=== PATIENT | female | born 1940 | race African-American/Black ===

== ENCOUNTER 2019-04-11 19:32 | Inpatient (IN) | payer OTHER, BC ==
[~2019-04-11] VITALS: Ht 167.6 cm; Wt 117.0 kg
[~2019-04-11 19:32] MED LIST: AVALIDE 300-121 EACH PO; BAYER CHEWABLE81 MG PO; CALCIUM 600 +1 EAC1 PO; CARVEDILOL12.5 MG PO; CENTRUM SILVER1 EAC4 PO; LIPITOR20 MG PO; NORCO 5-325 TA1 EACH PO
[2019-04-11 19:37] VITALS: BP 157/59
[2019-04-11 21:17] LABS: BASOPHILS 0.7 % (0.0-2.0); EOSINOPHILS 1.8 % (0.0-3.0); HEMATOCRIT 36.5 % (37.0-47.0); MCH 29.2 pg (26.0-34.0); MCHC 32.9 g/dL (28.0-37.0); MCV 88.8 fL (80.0-100.0); MONOCYTES 5.8 % (1.0-8.0); PLATELET COUNT 177 thou/uL (150-400); POLYS 55.7 % (36.0-66.0); RBC 4.11 mil/uL (4.20-5.00); RDW 14.2 % (10.5-14.5); WBC 7.1 thou/uL (4.0-11.0)
[2019-04-11 21:25] LABS: CALCIUM 9.5 mg/dL (8.5-10.1); POTASSIUM 3.9 mmol/L (3.5-5.1)
[2019-04-11 21:35] LABS: TROPONIN-I 0.1 ng/mL (<0.06)
[2019-04-12 04:14] LABS: HEMATOCRIT 36.9 % (37.0-47.0); HEMOGLOBIN 11.7 gm/dL (12.0-15.0); MCH 28.7 pg (26.0-34.0); MCHC 31.8 g/dL (28.0-37.0); MCV 90.1 fL (80.0-100.0); RBC 4.1 mil/uL (4.20-5.00); RDW 14.3 % (10.5-14.5); WBC 9.8 thou/uL (4.0-11.0)
[2019-04-12 04:29] LABS: CALCIUM 9.1 mg/dL (8.5-10.1); CREATININE 1.1 mg/dL (0.6-1.0); POTASSIUM 3.8 mmol/L (3.5-5.1); TOTAL BILIRUBIN 0.4 mg/dL (<0.1-1.0)
--- NOTE | 2019-04-12 10:45 | 2DMMODE ---
[facility] [place] [address] 2 D/M-MODE ECHOCARDIOGRAM [facility] Room #: 170-3 ADM IN M.R.#: [id number] Admission: 04/11/19 Attend Phys: Saida Jefferson Discharge: Date of : 38 Report #: [id number] THIS REPORT FOR: //name// APPROVED REPORT Study performed: 04/12/2019 07:50:03 EXAM: Comprehensive 2D, Doppler, and color-flow Echocardiogram Patient Location: ER Room #: 9 Status: routine BSA: 2.20 HR: 83 bpm BP: 132/60 mmHg Rhythm: NSR Other Information Study Quality: Adequate Indications Hypertension, elevated troponin. DM. 2D Dimensions RVDd: 32.32 mm IVSd: 12.00 (7-11mm) LVOT Diam: 19.55 (18-24mm) LVDd: 51.19 mm PWd: 12.00 (7-11mm) Ascending Ao: 40.68 (22-36mm) LVDs: 30.08 (25-40mm) Aortic Root: 31.86 mm Volumes Left Atrial Volume (Systole) Single Plane 4CH: 120.00 mL Single Plane 2CH: 81.76 mL LA ESV Index: 48.00 mL/m2 Aortic Valve AoV Peak Omer.: 2.06 m/s AO Peak Gr.: 15.04 mmHg LVOT Max P.94 mmHg AO Mean Gr.: 7.50 mmHg AO V2 Mean: 1.29 m/s LVOT Max V: 1.22 m/s AO V2 VTI: 40.32 cm TIFFANY Vmax: 1.77 cm2 Mitral Valve E/A Ratio: 1.3 [facility] [address] [place] [address] 2 D/M-MODE ECHOCARDIOGRAM Name: EDDIE ARREOLA [facility] Room #: [facility] ADM IN ..#: [id number] Admission: 04/11/19 Attend Phys: Saida Jefferson Discharge: Date of : 39 Report #: [id number] MV Decel. Time: 195.96 ms MV E Max Omer.: 0.98 m/s MV A Omer.: 0.78 m/s MV PHT: 56.83 ms IVRT: 65.74 ms Pulmonary Valve PV Peak Omer.: 1.40 m/s PV Peak Gr.: 7.85 mmHg Pulmonary Vein P Vein S: 0.61 m/s P Vein D: 0.38 m/s P Vein S/D Ratio: 1.61 Tricuspid Valve TR Peak Omer.: 2.41 m/s TR Peak Gr.: 23.26 mmHg Left Ventricle The left ventricle is normal size. There is normal LV segmental wall motion. Mild concentric left ventricular hypertrophy. Left ventricular systolic function is normal. LVEF is 55-60%. Moderate diastolic dysfunction is present (pseudonormal filling). Right Ventricle The right ventricle is normal size. The right ventricular systolic function is normal. Atria Left atrium is moderate to severely dilated. The right atrium size is normal. Aortic Valve The aortic valve is normal in structure; mildly calcified. Mild aortic regurgitation. There is no aortic valvular stenosis. Mitral Valve The mitral valve is normal in structure. Mild mitral regurgitation. Tricuspid Valve The tricuspid valve is normal in structure. Trace tricuspid regurgitation. Estimated PAP is 23mmHg plus the right atrial pressure. Pulmonic Valve [facility] [place] [address] 2 D/M-MODE ECHOCARDIOGRAM [facility] Room #: 170-3 ADM IN M.R.#: [id number] Admission: 04/11/19 Attend Phys: Saida Jefferson Discharge: Date of : 39 Report #: [id number] The pulmonary valve is normal in structure. Trace pulmonic regurgitation. Great Vessels The aortic root is normal in size. The ascending aorta is mildly dilated. IVC is not well visualized. Pericardium There is no pericardial effusion. <Conclusion> The left ventricle is normal size. Mild concentric left ventricular hypertrophy. LVEF is 55-60%. Moderate diastolic dysfunction is present (pseudonormal filling). The right ventricle is normal size. Left atrium is moderate to severely dilated. The aortic valve is normal in structure; mildly calcified. There is no aortic valvular stenosis. Mild mitral regurgitation. Trace tricuspid regurgitation. Estimated PAP is 23mmHg plus the right atrial pressure. The aortic root is normal in size. There is no pericardial effusion. The ascending aorta is mildly dilated. <ELECTRONICALLY SIGNED> By: Abran Savage MD, FACC 04/12/19 1045 1045 1045 Abran Savage MD, FACC /INF
[2019-04-12 11:59] VITALS: BP 133/53
[2019-04-12 13:52] LABS: CHOLESTEROL 162 mg/dL (<200); HDL CHOLESTEROL 49 mg/dL (>40); LDL CHOLESTEROL 91 mg/dL (<100); TC:HDL 3.3 Ratio (Not establshd); TRIGLYCERIDE 114 mg/dL (<150); VLDL 23 mg/dL (<40)
[2019-04-12 13:54] LABS: SERUM ASSESSMENT Clear
[2019-04-12 15:31] VITALS: BP 144/75
--- NOTE | 2019-04-12 17:32 | EKG ---
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: JEFFERY : 1940 Requested By: Curtis Tran Order Number: [id number] MD: Mane Morton Measurements Intervals [place] Rate: 79 P: 49 MS: 174 QRS: 8 QRSD: 117 T: 67 QT: 396 QTc: 455 Interpretive Statements Sinus rhythm Atrial premature complexes Incomplete left bundle branch block Anterior Q waves, possibly due to LVH No previous ECG available for comparison Electronically Signed On 04-12-2019 17:32:40 CDT by Mane Morton [email or web address] <ELECTRONICALLY SIGNED> By: Mane Morton MD, [facility] 04/12/191731 49 49 Mane Morton MD, FACC /EPI
--- NOTE | 2019-04-12 17:42 | EKG ---
[place] [address] [facility] [place] [address] ELECTROCARDIOGRAM REPORT Name: EDDIE ARREOLA Room #: 203-P ADM IN M.R.#: [id number] Admission: 04/11/19 Attend Phys: Saida Salas Discharge: Date of : 39 Report #: [id number] THIS REPORT FOR: //name// [facility] Test Date: 2019-04-12 Test Time: 14:05:34 Pat Name: EDDIE ARREOLA Department: Room: 203 Gender: F Oncology Research Rn: Cande HOWARD : 1940 Requested By: Curtis Tran Order Number: [id number] MD: Mane Morton Measurements Intervals [place] Rate: 85 P: 53 IA: 170 QRS: 15 QRSD: 120 T: 26 QT: 399 QTc: 475 Interpretive Statements Sinus rhythm Probable left ventricular hypertrophy Anterior ST elevation, probably due to LVH No previous ECG available for comparison Electronically Signed On 04-12-2019 17:42:01 CDT by Mane Morton [email or web address] <ELECTRONICALLY SIGNED> By: Mane Morton MD, [facility] 04/12/19 1742 D: 10/1404 140 Mane Morton MD, FACC /EPI
[2019-04-12] MEDS ORDERED: LOSARTAN-HCTZ1 EAC2 PO (19:47)
[2019-04-12] MEDS ORDERED: LUMIGAN2.5 M1 OP (19:50)
[2019-04-12] MEDS ORDERED: CARVEDILOL25 MG PO (19:50)
[2019-04-12] MEDS ORDERED: TIMOLOL MALEATE5 M1 OPHTHALMIC (19:51)
[2019-04-12] MEDS ORDERED: EVISTA PO (19:52)
[2019-04-12] MEDS ORDERED: ZETIA10 MG PO (19:53)
[2019-04-12] MEDS ORDERED: COLESEVELAM HC625 MG PO (19:54)
[2019-04-12 21:04] VITALS: BP 156/88
[2019-04-12 23:10] LABS: GLYCOHEMOGLOBIN (HGB A1C) 6.4 % (4.8-5.6)
[2019-04-13] VITALS (7 sets, daily range): BP systolic 118–158; BP diastolic 55–68
--- NOTE | 2019-04-13 03:58 | NUR ---
ASSUMED CARE AT 1900.PT ALERT AND ORIENTED. DENIES PAIN. ELEVATED BP, COREG, HOME DOSE RESTARTED. NPO SINCE MIDNIGHT. DENIES SOB, CHEST PAIN , DIZZINESS OR ANY SYNCOPE EPISODE. NO FURTHER C/O. PT STABLE. STRESS TEST PART 2 THIS AM. WILL CONTINUE TO MONITOR
== END 2019-04-13 17:58 | disposition home or self-care (01) | DRG 312 ==
LOC: ER 19:32 → EROBS 22:06 → 2N 22:06 → ENTRNSPT 04-13 16:33 → DELTRNSPT 04-13 17:53 → 2N 04-13 17:58
PROVIDERS: Nurse Practitioner; Nurse Practitioner Family; ADMIT Hospitalist
DX: R55 Syncope and collapse (principal); I10 Essential (primary) hypertension; E11.9 Type 2 diabetes mellitus without complications; E78.5 Hyperlipidemia, unspecified; Z60.2 Problems related to living alone; V89.2XXA Person injured in unspecified motor-vehicle accident, traffic, initial encounter; Y92.488 Other paved roadways as the place of occurrence of the external cause; Y93.89 Activity, other specified; Y99.8 Other external cause status; Z80.1 Family history of malignant neoplasm of trachea, bronchus and lung; Z80.52 Family history of malignant neoplasm of bladder; Z87.891 Personal history of nicotine dependence; Z79.82 Long term (current) use of aspirin; Z79.899 Other long term (current) drug therapy
CPT/HCPCS: 10081

== ENCOUNTER → 2020-11-22 | Outpatient (CLI) | payer OTHER, BC ==
[~2020-11-22] VITALS: Ht 167.6 cm; Wt 108.9 kg
[~2020-11-22] MED LIST changes: +CARVEDILOL25 MG PO; +COLESEVELAM HC625 MG PO; +COMBIGAN EYE DR10 ML OPHTHALMIC; +EVISTA PO; +LOSARTAN-HCTZ1 EAC2 PO; +LUMIGAN2.5 M1 OP; +NAPROSYN500 MG PO; +REFRESH CLASSI1 EACH OPHTHALMIC; +SLEEP AID50 MG PO; +TIMOLOL MALEATE5 M1 OPHTHALMIC; +ZETIA10 MG PO
--- NOTE | 2020-11-25 15:04 | P ---
[facility] [place] [address] PROCEDURE REPORT Name: EDDIE ARREOLA Room #: REG NANCI Baljit#: [id number] Admission: 11/22/20 Attend Phys: Paolo Armando Discharge: Date of : 39 Report #: [id number] THIS REPORT FOR: cc: Larry Esteban MD,Larry Hernandez,Paolo Carranza MD ~ DOC #: [id number] cc: MD Paolo August MD DATE OF SERVICE: 11/22/2020 PROCEDURE PERFORMED: Colonoscopy with polypectomies. HISTORY OF PRESENT ILLNESS: The patient is an 80-year-old female with recent Hemoccult positive stool. She denies any obvious bright red blood per rectum or melena. Last colonoscopy approximately 10 years ago. I do not have a copy of these results. She denies any abdominal pain. No family history of colon cancer. No history of anemia. She does take aspirin, which has been held for the last few days. DESCRIPTION OF PROCEDURE: The risks and benefits of the procedure were explained to the patient, those risks including but not limited to bleeding, perforation and the risk of sedation. She understood these risks and gave informed consent. Sedation was given using propofol per anesthesia. Next, a digital rectal exam was initially performed, which was normal. Next, using a standard Olympus colonoscope, the scope was placed in the patient's anus and advanced under direct vision to the cecum. The overall prep was good. In the cecum, there was a 3 mm sessile polyp. This was removed with cold forceps, otherwise normal. The ileocecal valve was normal. In the ascending colon, 2 polyps ranging from 3-4 mm were noted both removed by cold forceps. The transverse and descending colon were normal. Multiple small diverticula were noted in the sigmoid colon. No evidence of inflammation. Also noted was a 3 mm sessile polyp also removed with cold forceps. In the proximal rectum, there was a 5 mm polyp that was noted and with the scope passing by, it did start actively bleeding very mildly. This was removed by snare cautery. No further bleeding was noted after removal. The remaining rectum was normal. On retroflexion, small nonbleeding internal hemorrhoids were seen. The scope was then withdrawn and the procedure terminated. The patient tolerated the procedure well. IMPRESSION: Multiple colonic polyps as described above, one in the rectum had active bleeding with the scope passing, suspect this may be the etiology of the patient's heme-positive stool. This has been now removed. RECOMMENDATIONS: Observe the patient post-procedure. [address] [address] PROCEDURE REPORT Name: EDDIE ARREOLA Room #: REG NANCI Smiley#: [id number] Admission: 11/22/20 Attend Phys: Paolo Armando Discharge: Date of : 39 Report #: [id number] Thank you for allowing me to participate in her care. Paolo Hernandez MD CCM/LEONCIO <ELECTRONICALLY SIGNED> By: Paolo Hernandez MD 11/25/20 1504 0928 2145 Paolo Hernandez MD /nt
--- NOTE | 2020-11-26 13:13 | PATH ---
[facility] [place] [address] PATHOLOGY RPT PROCEDURE Name: EDDIE ARREOLA Room #: REG NANCI Rico.#: [id number] Admission: 11/22/20 Date of : 39 Discharge: Report #: [id number] Path Case #: [id number] [facility] Accession Number: [id number] . 01 Material submitted: . PART A: cecum - CECAL POLYP PART B: colon - ASCENDING COLON POLYP X2. Modifiers: ascending PART C: sigmoid colon - SIGMOID COLON POLYP PART D: rectum - RECTAL POLYP . 01 Clinical history: . BLOOD IN STOOL COLON POLYPS . 02 Diagnosis: A. Polyp, cecal polyp, endoscopic biopsy: - Tubular adenoma. - Negative for high-grade dysplasia. . B. Polyp x2, ascending colon polyp, endoscopic biopsy: - Tubular adenoma. - Negative for high-grade dysplasia. . C. Polyp, sigmoid colon polyp, endoscopic biopsy: - Tubular adenoma. - Negative for high-grade dysplasia. . D. Polyp, rectal polyp, endoscopic biopsy: - Tubular adenoma. - Negative for high-grade dysplasia. (IUV:maikol; 11/25/2020) QMS 11/25/2020 1640 Local . 02 Electronically signed: . Aracelis Gage MD, Pathologist NPI- [id number] . 01 Gross description: . A. Received in formalin labeled "Eddie Arreola, cecal polyp" are 2 fragments of colorado-brown soft tissue measuring in aggregate 0.5 x 0.3 x 0.1 cm. The specimen is submitted entirely in A1. . B. Received in formalin labeled "Eddie Arreola, ascending colon polyp x2" are multiple fragments of colorado-brown soft tissue measuring in aggregate 0.8 x 0.3 x 0.1 cm. The specimen is submitted entirely in B1. . C. Received in formalin labeled "Eddie Arreola, sigmoid colon polyp" is a [place] [id number] PATHOLOGY RPT [facility] #: REG [facility]#: [id number] Admission: 11/22/20 Date of : 39 Discharge: Report #: [id number] Path Case #: [id number] fragment of colorado-brown soft tissue measuring 0.3 x 0.3 x 0.1 cm. The specimen is submitted entirely in C1. . D. Received in formalin labeled "Alfreda, Eddie, rectal polyp" are multiple fragments of colorado-brown soft tissue measuring in aggregate 1.1 x 0.7 x 0.2 cm. The specimen is submitted entirely in D1. ([facility]; 11/24/2020) [facility] 11/24/2020 1039 Local . 02 Pathologist provided ICD-10: D12.0, D12.2, D12.5, D12.8 . 02 CPT . 864428, 278103, 396040, 377422 Specimen Comment: A courtesy copy of this report has been sent to [phone], [phone] Specimen Comment: [phone] Specimen Comment: Report sent to / DR MORGAN Performed at: [address], [place] [id number] MD Norman Stevenson MD Phone: [phone] Performed at: [address] [id number] MD Aracelis Gage MD Phone: [phone]
== END | disposition home or self-care (01) ==
LOC: GI 07:56
PROVIDERS: ATTEND Specialist
DX: K92.1 Melena (principal); D12.0 Benign neoplasm of cecum; D12.2 Benign neoplasm of ascending colon; D12.5 Benign neoplasm of sigmoid colon; D12.8 Benign neoplasm of rectum; K57.30 Diverticulosis of large intestine without perforation or abscess without bleeding; K64.8 Other hemorrhoids; I10 Essential (primary) hypertension; E11.9 Type 2 diabetes mellitus without complications; H40.9 Unspecified glaucoma; Z98.890 Other specified postprocedural states; Z79.899 Other long term (current) drug therapy; Z87.891 Personal history of nicotine dependence; Z90.49 Acquired absence of other specified parts of digestive tract; Z79.82 Long term (current) use of aspirin
CPT/HCPCS: 62110; 62900

== ENCOUNTER 2021-07-21 20:10 | Inpatient (IN) | payer OTHER, BC ==
[~2021-07-21] VITALS: Ht 170.2 cm; Wt 108.4 kg
[2021-07-21 20:34] VITALS: BP 114/57
[2021-07-21 21:31] LABS: HEMATOCRIT 36.2 % (37.0-47.0); HEMOGLOBIN 11.9 gm/dL (12.0-15.0); MCH 28.9 pg (26.0-34.0); MCV 87.5 fL (80.0-100.0); PLATELET COUNT 134 thou/uL (150-400); RBC 4.13 mil/uL (4.20-5.00); RDW 15.4 % (10.5-14.5); WBC 16.3 thou/uL (4.0-11.0)
[2021-07-21 21:34] LABS: CREATININE 2.1 mg/dL (0.6-1.0); POTASSIUM 4.3 mmol/L (3.5-5.1)
[2021-07-21 21:45] LABS: ALBUMIN 2.5 g/dL (3.4-5.0); TOTAL BILIRUBIN 1.4 mg/dL (0.2-1.0); TOTAL PROTEIN 6.9 g/dL (6.4-8.2)
[2021-07-21 21:46] LABS: URINE BILIRUBIN NEGATIVE (Negative); URINE BLOOD 1+ (Negative); URINE CLARITY SL CLOUDY; URINE COLOR YELLOW; URINE GLUCOSE-RANDOM* NEGATIVE (Negative); URINE KETONES NEGATIVE (Negative); URINE NITRITE-REFLEX NEGATIVE (Negative); URINE PROTEIN (DIPSTICK) 2+ (Negative); URINE SPECIFIC GRAVITY >= 1.030 (1.005-1.035); URINE UROBILINOGEN 0.2 E.U./dl (0.2-1.0)
[2021-07-21 21:49] LABS: URINE LEUKOCYTES-REFLEX 2+ (Negative)
[2021-07-21 22:14] LABS: BACTERIA-REFLEX >30 Many /HPF (None Seen); HYALINE CASTS 0-3 Few /LPF (None Seen); MUCUS 0-3 Light strn/LPF (None Seen); SQUAMOUS 4-10 Moderate /LPF (0-3); URINE WBC-REFLEX >25 Many /HPF (0-5)
[2021-07-21 22:15] LABS: CRYSTALS None Seen /LPF (None Seen); URINE RBC 3-10 Few /HPF (NONE SEEN)
[2021-07-21 22:43] LABS: ABSOLUTE NEUTROPHILS 12.6 thou/uL (1.4-8.2)
[2021-07-22 06:24] LABS: HEMATOCRIT 36.9 % (37.0-47.0); HEMOGLOBIN 12.1 gm/dL (12.0-15.0); MCH 28.9 pg (26.0-34.0); MCHC 32.8 g/dL (28.0-37.0); MCV 88.1 fL (80.0-100.0); RBC 4.19 mil/uL (4.20-5.00); RDW 15.6 % (10.5-14.5); WBC 11.8 thou/uL (4.0-11.0)
[2021-07-22 06:54] LABS: ANION GAP 14 mmol/L (7-16); BUN 43 mg/dL (7-18); CALCIUM 7.8 mg/dL (8.5-10.1); CHLORIDE 96 mmol/L (98-107); CHOLESTEROL 135 mg/dL (<200); CO2 21 mmol/L (21-32); CREATININE 2.1 mg/dL (0.6-1.0); GLUCOSE 168 mg/dL (74-106); HDL CHOLESTEROL 11 mg/dL (>40); LDL CHOLESTEROL 74 mg/dL (<100); POTASSIUM 4.1 mmol/L (3.5-5.1); SODIUM 131 mmol/L (136-145); TC:HDL 12.3 Ratio (Not establshd); TRIGLYCERIDE 253 mg/dL (<150); VLDL 51 mg/dL (<40)
[2021-07-22 07:07] LABS: SERUM ASSESSMENT Clear
--- NOTE | 2021-07-22 10:32 | NUR ---
RECEIVED RPEORT FROM RN, ROUNDED ON PT AND INTRODUCED SELF,PT WAS BEING ASSISTED INTO A HOSPITAL BED, STATES SHE IS MUCH MORE COMFORTABLE. PT DENIES ANY NEEDS AT THIS TIME
--- NOTE | 2021-07-22 11:29 | NUR ---
PTS BLOOD GLUCOSE 192
--- NOTE | 2021-07-22 11:57 | EKG ---
[address] [place] [address] ELECTROCARDIOGRAM REPORT Name: EDDIE ARREOLA Room #: 170-4 ADM IN M.R.#: [id number] Admission: 07/21/21 Attend Phys: Herbie Hernandez MD Discharge: Date of : 39 Report #: [id number] [facility] ED Test Date: 2021-07-21 Test Time: 21:22:13 Pat Name: EDDIE ARREOLA Department: Room: 170 Gender: F Kitchen Lead: LEWIS : 1940 Requested By: Esha Queen Order Number: [id number] MD: Shiv Obrien Measurements Intervals [place] Rate: 90 P: 73 OK: 153 QRS: -1 QRSD: 119 T: 22 QT: 363 QTc: 444 Interpretive Statements Sinus arrhythmia Incomplete left bundle branch block Low voltage, precordial leads Left ventricular hypertrophy Baseline wander in lead(s) V3 Compared to ECG 04/12/2019 14:05:34 Left bundle-branch block now present Low QRS voltage now present Sinus rhythm no longer present ST (T wave) deviation no longer present Electronically Signed On 07-22-2021 11:57:03 OPERATIVE SUPERVISOR by Shiv Obrien [email or web address] <ELECTRONICALLY SIGNED> By: Shiv Obrien MD, FACC 07/22/21 1157 21 21 Shiv Obrien MD, FAC /EPI
--- NOTE | 2021-07-22 11:58 | EKG ---
[place] [address] [facility] [place] [address] ELECTROCARDIOGRAM REPORT Name: EDDIE ARREOLA Room #: 170-4 ADM IN M.R.#: [id number] Admission: 07/21/21 Attend Phys: Herbie Hernandez MD Discharge: Date of : 39 Report #: [id number] [facility] Test Date: 2021-07-22 Test Time: 10:33:44 Pat Name: EDDIE ARREOLA Department: Room: 170 4 Gender: F Metrology Specialist: CRISTEL : 1940 Requested By: Caprice Ayala Order Number: [id number] MD: Shiv Obrien Measurements Intervals [place] Rate: 87 P: 55 RI: 162 QRS: 1 QRSD: 121 T: 23 QT: 372 QTc: 448 Interpretive Statements Sinus rhythm Consider left atrial enlargement Left bundle branch block Compared to ECG 07/21/2021 21:22:13 Sinus arrhythmia no longer present Left ventricular hypertrophy no longer present Electronically Signed On 07-22-2021 11:58:[address] by Shiv Obrien [email or web address] <ELECTRONICALLY SIGNED> By: Shiv Obrien MD, [facility] 07/22/21 1158 1033 1033 Shiv Obrien MD, FAC /EPI
--- NOTE | 2021-07-22 15:05 | 2DMMODE ---
[facility] [place] [address] 2 D/M-MODE ECHOCARDIOGRAM Name: EDDIE ARREOLA Room #: 170-4 ADM IN M.R.#: [id number] Admission: 07/21/21 Attend Phys: Herbie Hernandez MD Discharge: Date of : 39 Report #: [id number] THIS REPORT FOR: cc: Larry Esteban MD, Sequita MD Park, Jin S. MD ~ APPROVED REPORT Study performed: 07/22/2021 14:26:35 EXAM: Comprehensive 2D, Doppler, and color-flow Echocardiogram Patient Location: ER Room #: 4 Status: routine BSA: 2.18 HR: 83 bpm BP: 127/70 mmHg Rhythm: NSR Other Information Study Quality: Adequate Indications Diabetes Elevated Troponin Hypertension/HDD 2D Dimensions IVSd: 8.76 (7-11mm) LVOT Diam: 21.35 (18-24mm) LVDd: 52.75 mm PWd: 9.14 (7-11mm) Ascending Ao: 34.77 (22-36mm) LVDs: 36.45 (25-40mm) Left Atrium: 48.34 (27-40mm) Aortic Root: 28.78 mm IVC: 24.00 mm Volumes Left Atrial Volume (Systole) Single Plane 4CH: 79.40 mL Single Plane 2CH: 56.73 mL LA ESV Index: 33.00 mL/m2 Aortic Valve AoV Peak Omer.: 1.17 m/s AO Peak Gr.: 5.44 mmHg LVOT Max P.87 mmHg LVOT Max V: 0.85 m/s [facility] [address] [place] [address] 2 D/M-MODE ECHOCARDIOGRAM Name: EDDIE ARREOLA Room #: 170-4 ADM IN ..#: [id number] Admission: 07/21/21 Attend Phys: Herbie Hernandez MD Discharge: Date of : 39 Report #: [id number] TIFFANY Vmax: 2.60 cm2 Pulmonary Valve PV Peak Omer.: 0.99 m/s PV Peak Gr.: 3.89 mmHg Tricuspid Valve TR Peak Omer.: 2.53 m/s TR Peak Gr.: 25.55 mmHg PA Pressure: 36.00 mmHg Left Ventricle The left ventricle is normal size. There is normal LV segmental wall motion. There is normal left ventricular wall thickness. The left ventricular systolic function is normal. The left ventricular ejection fraction is within the normal range. LVEF is 55-60%. This study is not technically sufficient to allow evaluation of the LV diastolic function. Right Ventricle The right ventricle is normal size. The right ventricular systolic function is normal. Atria Left atrium is at the upper limits of normal. Right atrium is at the upper limits of normal. Aortic Valve The Aortic valve is sclerotic. Trace aortic regurgitation. There is no aortic valvular stenosis. Mitral Valve The mitral valve is normal in structure. Mild mitral regurgitation. No evidence of mitral valve stenosis. Tricuspid Valve The tricuspid valve is normal in structure. There is trace tricuspid regurgitation. Estimated PAP 34 mmHg. There is mild pulmonary hypertension. Pulmonic Valve The pulmonary valve is normal in structure. There is no pulmonic valvular regurgitation. Great Vessels The aortic root is normal in size. IVC is dilated and collapses <50% with inspiration. [facility] [address] [place] [address] 2 D/M-MODE ECHOCARDIOGRAM Name: EDDIE ARREOLA Room #: 170-4 ADM IN M.R.#: [id number] Admission: 07/21/21 Attend Phys: Herbie Hernandez MD Discharge: Date of : 39 Report #: [id number] Pericardium There is no pericardial effusion. <Conclusion> The left ventricle is normal size. There is normal left ventricular wall thickness. The left ventricular systolic function is normal. The right ventricle is normal size. Left atrium is at the upper limits of normal. The Aortic valve is sclerotic. Mild mitral regurgitation. There is trace tricuspid regurgitation. Estimated PAP 34 mmHg. <ELECTRONICALLY SIGNED> By: Stefano Mayo MD 07/22/21 1504 1504 1504 Stefano Mayo MD /INF
--- NOTE | 2021-07-22 15:09 | NUR ---
PT ADMITTED RELATED TO UROSEPSIS AND ELEVATED TROPONIN. CM REVIEWED CHART AND SPOKE WITH CARE TEAM. CM CALLED PT'S DTR REBECCA MAC . SHE INDICATED THAT PT RESIDES IN A HOUSE AND THAT HER GRANDSON RESIDES WITH HER. DTR INDICATED THAT THERE IS 1 STEP TO ENTER AND 7 STEPS DOWN TO LAUNDRY ROOM. 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 DTR INDICATED SHE DIDN'T THINK PT HAD HH OR OP HX. PT'S PCP IS DR. NIKOS MORGAN. DTR INDICATED SHE ANTICIPATED PT RETURNING HOME ONCE MEDICALLY STABLE. PT IS ON IV ROCEPHIN. CARDIOLOGY, OT, AND OT CONSULTED. CM FOLLOWING REGARDING DC PLANNING NEEDS.
--- NOTE | 2021-07-22 18:15 | NUR ---
THIS RN ATTEMPTED TO CLL REPORT TO 4S, NO ANSWER
[2021-07-22 18:28] VITALS: BP 117/60
[2021-07-22 20:35] VITALS: BP 137/79
--- NOTE | 2021-07-22 22:57 | NUR ---
PT ADMITTED TO THE UNIT WITH ELEVATED TROPONIN AND UROSEPSIS. PT IS A/O X4 AND IS UP WITH ASSISTANCE. RA. VSS. PULLUP PROVIDED AT REQUEST OF PT FOR INCONTINENCE. LBM WAS YESTERDAY. ADMISSION IS COMPLETED. PT HAS BEEN EDUCATED ON USE OF CALL LIGHT AND BED CONTROLS. MEDICATION GIVEN PER MAR. HS BS ELEVATED. INSULIN GIVEN DIRECTED. PT VOICES NO CONCERNS WITH PAIN OR DISCOMFORT. FALL PRECAUTIONS IN PLACE, CALL LIGHT IS WITHIN REACH.
--- NOTE | 2021-07-23 08:10 | NUR ---
ASSUMED PT CARE THIS AM. PT REFUSED VITAL SIGNS, BLOOD SUGAR MONITOR, MEDICATIONS, TELE MONITOR AND LABS THIS AM. EDUCATED PT AND REITERATE BUT STILL REFUSING AND STATING THAT SHE WANTS TO GO HOME. CALLED DIESEL ENGINEER THIS AM TO HELP EDUCATED PT BUT UNSUCCESSFUL. [facility]ITAL[facility] THIS AM TO EDUCATED THE PT.
[2021-07-23 08:48] VITALS: BP 130/85
[2021-07-23 10:05] LABS: CALCIUM 8.3 mg/dL (8.5-10.1); POTASSIUM 3.8 mmol/L (3.5-5.1)
[2021-07-23 15:43] VITALS: BP 103/45
--- NOTE | 2021-07-23 16:08 | NUR ---
Discussed possible HH with patient. Left list of Home health agencies to review.
[2021-07-23 19:55] VITALS: BP 132/69
--- NOTE | 2021-07-24 03:23 | NUR ---
PT IS A/O X4 WITH FORGETFULNESS. GETS UP WITH ASSISTANCE. CALLS OUT APPROPRIATELY. MEDICATIONS GIVEN PER MAR. FALL PRECUATIONS IN PLACE, CALL LIGHT IS WITHIN REACH.
[2021-07-24 05:31] VITALS: BP 128/77
[2021-07-24 08:03] VITALS: BP 133/98
--- NOTE | 2021-07-24 10:55 | NUR ---
ASSUMED PATIENT AT SHIFT CHANGE THIS AM. COMPLAINING OF PAIN GENERALIZED ON ASSESMENT. WILL GIVE TYLENOL WITH AM MEDICATIONS. NO ISSUES OVERNIGHT AND WILL CONTINUE TO MONITOR AND UPDATE NEEDED
--- NOTE | 2021-07-24 15:00 | NUR ---
Patient sleeping sp with dtr via phone. Discussed possible dc tomorrow. Discussed HH care and reviewed options of home health care. Dtr to discuss with her sister home health list. She reports patient sleeping more often which is not her baseline. updated phys.
[2021-07-24 17:35] VITALS: BP 146/88
[2021-07-24 21:16] VITALS: BP 127/53
--- NOTE | 2021-07-24 23:00 | NUR ---
Pt. rested quietly during the evening and offers no complaints. Bed alarm is on. Report given to oncoming nurse.
--- NOTE | 2021-07-24 23:26 | NUR ---
TOOK OVER CARE NOW. PT SLEEPING. LUNGS WITH WHEEZES. BLE EDEMA. BED ALARM ON.
[2021-07-25 07:15] VITALS: BP 139/54
[2021-07-25 09:37] LABS: HEMATOCRIT 35.2 % (37.0-47.0); HEMOGLOBIN 11.5 gm/dL (12.0-15.0); MCH 28.5 pg (26.0-34.0); MCHC 32.6 g/dL (28.0-37.0); MCV 87.4 fL (80.0-100.0); PLATELET COUNT 217 thou/uL (150-400); RBC 4.02 mil/uL (4.20-5.00); WBC 17.2 thou/uL (4.0-11.0)
[2021-07-25 09:50] LABS: CALCIUM 8.5 mg/dL (8.5-10.1); CREATININE 1.5 mg/dL (0.6-1.0); POTASSIUM 3.8 mmol/L (3.5-5.1)
[2021-07-25 11:01] VITALS: BP 139/54
[2021-07-25 11:50] VITALS: BP 107/69
[2021-07-25 15:43] VITALS: BP 125/54
--- NOTE | 2021-07-25 16:07 | NUR ---
patient with WBC rise. ID consulted. If [facility] to [facility] over [phone] Call [phone] to alert of discharge. patient has walker in room for home provided by [facility]
--- NOTE | 2021-07-25 19:21 | NUR ---
Assumed care of patient at 0700. Patient resting comfortably in recliner, ready for breakfast. Patient oriented, ambulatory with walker to bathroom. Lungs clear on room air, heart sounds normal. Normal sinus rhythm/a fib noted on telemetry. Mild edema present in bilat lower legs. Bowel sounds present. Daughter at bedside. No concerns at this time.
[2021-07-25 19:28] VITALS: BP 131/65
[2021-07-25 20:21] LABS: ABSOLUTE NEUTROPHILS 11.7 thou/uL (1.4-8.2)
--- NOTE | 2021-07-26 03:59 | NUR ---
Pt. rested quietly during the night when checked on during frequent rounds. She offers no complaints of pain. Bed alarm is on.
[2021-07-26 06:10] LABS: HEMATOCRIT 36.3 % (37.0-47.0); HEMOGLOBIN 11.7 gm/dL (12.0-15.0); MCH 29.5 pg (26.0-34.0); MCHC 32.4 g/dL (28.0-37.0); MCV 91.2 fL (80.0-100.0); PLATELET COUNT 195 thou/uL (150-400); RBC 3.98 mil/uL (4.20-5.00); RDW 16.8 % (10.5-14.5); WBC 12.3 thou/uL (4.0-11.0)
[2021-07-26 06:30] LABS: ALBUMIN 2.2 g/dL (3.4-5.0); CALCIUM 8.1 mg/dL (8.5-10.1); CREATININE 1.4 mg/dL (0.6-1.0); TOTAL BILIRUBIN 0.5 mg/dL (0.2-1.0); TOTAL PROTEIN 6.6 g/dL (6.4-8.2)
[2021-07-26 07:50] LABS: ABSOLUTE NEUTROPHILS 9.2 thou/uL (1.4-8.2); METAMYELOCYTES 1 %; PLATELET ESTIMATE NORMAL
--- NOTE | 2021-07-26 12:00 | NUR ---
ASSUMED CARE OF PT AT 0700 THIS MORNING. PT IS A/OX4. WEAK AND HAS NEPHRITIS. ASSESSMENTS NOTE IN CHART AND OTHERWISE UNREMARKABLE. PT IS UP WITH 1X ASST TO COMODE. FALL PRECAUTIONS ARE IN PLACE. CALL LIGHT AND OTHER NEEDS ARE IN REACH. MEDS AND TX GIVEN NEEDED, WILL MONITOR AND NOTE ANY CHANGES.
[2021-07-26 12:39] VITALS: BP 133/64
[2021-07-26 21:05] VITALS: BP 147/89
--- NOTE | 2021-07-27 06:29 | NUR ---
PT AMBULATING TO BATHROOM WITH ASSIST AND IS TOLERATING FAIR. DENIES PAIN. RESTING COMFORTABLY. NO NEEDS VOICED. CALL LIGHT WITHIN REACH. FREQUENT OBSERVATION.
[2021-07-27 07:55] VITALS: BP 152/72
[2021-07-27] MEDS ORDERED: CEFDINIR300 MG PO (09:58)
[2021-07-27 10:29] VITALS: BP 139/54
[2021-07-27 11:41] VITALS: BP 139/54
--- NOTE | 2021-07-27 11:51 | NUR ---
PT DISCHARGING TODAY TO HOME WITH [facility] FAXED DC ORDERS/SUMMARY TO [facility] RECEIVED CONFIRMATION THEY WILL ARRANGE VISITS WITH PT.
== END 2021-07-27 11:55 | disposition home health service (06) | DRG 871 ==
LOC: ER 20:10 → 4S 23:19 → EROBS 23:19 → 4S 07-22 18:29
PROVIDERS: Nurse Practitioner; Nurse Practitioner Adult Health; Nurse Practitioner Family; Specialist; ADMIT Hospitalist; ATTEND Hospitalist
DX: A41.9 Sepsis, unspecified organism (principal); I21.4 Non-ST elevation (NSTEMI) myocardial infarction; N30.01 Acute cystitis with hematuria; N17.9 Acute kidney failure, unspecified; N18.9 Chronic kidney disease, unspecified; Z20.822 Contact with and (suspected) exposure to COVID-19; I71.4 Abdominal aortic aneurysm, without rupture; E78.5 Hyperlipidemia, unspecified; Z96.0 Presence of urogenital implants; E78.00 Pure hypercholesterolemia, unspecified; B96.20 Unspecified Escherichia coli [E. coli] as the cause of diseases classified elsewhere; M81.0 Age-related osteoporosis without current pathological fracture; K59.00 Constipation, unspecified; E66.9 Obesity, unspecified; R53.81 Other malaise; I12.9 Hypertensive chronic kidney disease with stage 1 through stage 4 chronic kidney disease, or unspecified chronic kidney disease; E11.22 Type 2 diabetes mellitus with diabetic chronic kidney disease; Z90.49 Acquired absence of other specified parts of digestive tract; Z79.899 Other long term (current) drug therapy; Z79.82 Long term (current) use of aspirin; Z91.81 History of falling; Z80.52 Family history of malignant neoplasm of bladder; Z68.37 Body mass index [BMI] 37.0-37.9, adult
CPT/HCPCS: 10100